=== PATIENT | female | born 1960 | race African-American/Black ===

== ENCOUNTER → 2017-05-29 | Outpatient (CLI) | payer BC ==
[~2017-05-29] MED LIST: CELEBREX PO; ESTRADIOL0.5 MG PO; OMEPRAZOLE40 M1 PO; PREMARIN0.625 MG PO; SINGULAIR PO; VITAMIN D50000 UNIT PO
--- NOTE | ~2017-05-29 | CT2 ---
[facility] A Service of [facility] & [facility] RADIOLOGY TEXT RESULTS PATIENT: KAYCEE BELL LOCATION: [facility] : 60 UNIT #: [id number] AGE: [address]: Familia Mirza MD SEX: F ORDER DR: [id number] [facility] [address] [place], [place] [address] [id number] O MR#: [id number] Acc #: [id number] NAME: KAYCEE BELL : 1960 SEX: F STUDY DATE/TIME: 05/29/2017 7:54 UNIT: [facility] ROOM: STUDY DESCRIPTION: CT Abd and Pelv W Cont Attending Physician: Familia Mirza M.D. Referring Physician: Familia Mirza M.D. Ordering Physician: Familia Mirza M.D. Primary Care Physician: Primary Care Physician No MEDICAL IMAGING REPORT This report is preliminary unless electronic signature is present EXAM CT abdomen and pelvis with contrast DATE: 05/29/2017 HISTORY Lymphoma diagnosed in 2014. No current complaints. Last chemotherapy treatment February 2015. COMPARISON CT abdomen and pelvis with contrast 11/25/2016. CT abdomen 05/18/2016, 11/10/2015, 08/10/2015, 01/21/2015, 10/28/2014. PROCEDURE 5 mL axial images from the lung bases through the lesser trochanters after intravenous and enteric contrast administration. Sagittal and coronal reformatted images were obtained. The CT exam was performed with one or more of the following radiation dose reduction techniques: automatic exposure control, adjustment of mA and/or kV according to patient size, and iterative reconstruction. ABDOMEN FINDINGS: Gastric wall configuration is not thought to be significantly changed from prior examination. No discrete gastric mass lesion is identified. No pathologically enlarged gastrohepatic or gastrosplenic ligament nodes are evident. There is no ascites. Four low density hepatic lesions measuring between 4 to 7 mm are unchanged in size since 01/21/2015 in keeping with benign finding such as cysts or hemangiomas. There is mild scarring peripherally in the right lung base. No basilar [facility] A Service of [facility] & [facility] RADIOLOGY TEXT RESULTS PATIENT: KAYCEE BELL LOCATION: [facility] #: [id number] : 60 UNIT #: [id number] AGE: [address]: Familia Mirza MD SEX: F ORDER DR: consolidations or suspicious basilar pulmonary nodules are evident. The spleen, pancreas, adrenals and kidneys are within normal limits. There are a few shotty mesenteric lymph nodes, including a dominant 8 mm long axis right mid mesenteric node, unchanged from 01/21/2015. No new or pathologic adenopathy is identified. The bowel appears nonthickened and noninflamed. Cholecystectomy changes are present. No biliary dilation is seen. PELVIS FINDINGS: No pathologic adenopathy or free fluid. Urinary bladder and rectum normal. Hysterectomy. Facet arthropathy is present, greatest at L4-5 and L5-S1. Mild degenerative changes in the bilateral sacroiliac joints. No suspicious osteolytic or osteoblastic abnormalities are identified. IMPRESSION 1. Stable findings compared to previous examination. No convincing evidence of recurrent disease or metastatic disease in the abdomen or pelvis in this patient with history of gastric lymphoma. 2. Subcentimeter low-density lesions within the liver have been stable for 2 years in keeping with benign finding such as cysts or angiomas. 3. Cholecystectomy and presumed hysterectomy. Dictated by... Nadine Lacey M.D. THIS IS AN ELECTRONICALLY VERIFIED REPORT Nadine Lacey M.D. at 05/30/2017 8:[address] [facility]/[place] TD: 05/29/2017 13:20 JOB #: [id number] MEDICAL IMAGING REPORT Page 1 of 1 COPY
== END | disposition home or self-care (01) ==
LOC: CCAT 06:09
DX: Z08 Encounter for follow-up examination after completed treatment for malignant neoplasm (principal); K76.9 Liver disease, unspecified; Z90.49 Acquired absence of other specified parts of digestive tract; Z85.72 Personal history of non-Hodgkin lymphomas; Z92.21 Personal history of antineoplastic chemotherapy
CPT/HCPCS: 74177; Q9967